=== PATIENT | female | born 1965 | race Caucasian/White ===

== ENCOUNTER 2019-10-11 10:51 | Emergency (ER) | payer OTHER, SELFPAY ==
[2019-10-11 10:52] VITALS: BP 126/99; PULSE 66; RESP 19; TEMP 36.6; O2SAT 98; BMI 26.7
--- NOTE | 2019-10-11 11:18 | EKG12_ITS ---
Test Reason : DYSRHYTHMIA Blood Pressure : / mmHG Vent. Rate : 062 BPM Atrial Rate : 062 BPM P-R Int : 148 ms QRS Dur : 082 ms QT Int : 406 ms P-R-T Axes : 062 065 048 degrees QTc Int : 412 ms Normal sinus rhythm Normal ECG Confirmed by NILSA ZELAYA, DINORAH ([id number]), food editor LIZETH PHOENIX ([id number]) on 10/13/2019 9:30:37 AM Referred By: Confirmed By:DINORAH ASH MD
--- NOTE | 2019-10-11 11:18 | RAD_ITS ---
STUDY: X-RAY CHEST REASON FOR EXAM: Female, 53 years old. CHEST PAIN TECHNIQUE: Single AP portable view of the chest. COMPARISON: None. FINDINGS: The lungs are clear and expanded. There is no demonstrated pleural abnormality. Normal size heart. Normal mediastinum and radha. Normal visualized pulmonary arteries. Normal visualized aortic arch and descending thoracic aorta. Normal visualized thoracic spine. Normal visualized ribs, clavicles, and shoulders. There is no demonstrated abnormality of the visualized soft tissue structures of the upper abdomen. RAD/Chest 1 View (Portable) IMPRESSION: No evidence of acute cardiopulmonary process. Electronically Signed: Mukul King DO at 11:51 EST , Service support ,
[2019-10-11 11:49] LABS: Absolute Neutrophil Count 5.6 X10^3/uL (2.0-7.7); Basophil# 0.05 X10^3/uL; Basophil% 0.6 % (0-1); Eosinophil# 0.21 X10^3/uL; Eosinophils% 2.5 % (0-5); Hematocrit 44.6 % (37-47); Hemoglobin 14.5 g/dL (12.0-15.0); Lymphocyte % 21.8 % (19-41); Mean Corp Hgb Conc 32.5 g/dL (32-36); Mean Corpuscular Hgb 29.6 pg (27.0-32.0); Monocyte# 0.52 X10^3/uL; Monocyte% 6.3 % (0-10); NRBC Flagged by Analyzer 0 % (0-5); Neutrophil # 5.58 X10^3/uL (2.7-7.7); Neutrophil % 67.6 % (47-70); Platelet Count 308 K/mm3 (150-450); RBC Distribution Width CV 12.9 % (11.6-14.6); RBC Distribution Width SD 43.2 fl (35.1-43.9); White Blood Count 8.3 K/mm3 (4.4-11.0)
[2019-10-11 12:08] LABS: Anion Gap 4 (5-15); BUN 11 mg/dL (7-18); Calcium,Total 9.3 mg/dL (8.5-10.1); Chloride 107 mmol/L (98-107); Creatinine, Serum 0.91 mg/dL (0.55-1.02); EST Glomerular Filtration Rate 68 mL/min (>60); Est Glom Filt Rate - Afr Amer 82 mL/min (>60); Glucose 194 mg/dL (74-106); Magnesium 1.9 mg/dL (1.6-2.6); Potassium 4.2 mmol/L (3.5-5.1); Sodium Level 139 mmol/L (136-145); Thyroid Stim Hormone (TSH) 1.13 uIU/mL (0.358-3.74)
[2019-10-11 12:16] VITALS: BP 119/88; PULSE 73; RESP 18; O2SAT 99
[2019-10-11 12:29] VITALS: BP 126/92; PULSE 68; RESP 14; O2SAT 96
--- NOTE | 2019-10-11 12:50 | ED.VIS.GEN ---
History of Present Illness Chief Complaint: Palpitations Informant: Patient, Family, [employer] Onset: Today Narrative: Patient states that she got up today when outside and began to sweat to feel jaw and chest tightness. She has had these symptoms before and they have been relieved with drinking ice water. When EMS arrived she was noted to be in an SVT rhythm with a rate around 180. Adenosine was given with conversion to a sinus rhythm and her symptoms abated. She notes that the symptoms are not monthly. She reports going to an outside emergency department in the past but states I had the wrong health insurance so I was discharged. She denies any prior stress test or heart catheterization. She is a diabetic. No history of hypertension or high cholesterol. She is a smoker. Past Medical History - Allergies and Home Meds Allergies/Adverse Reactions: Allergies No Known Allergies Allergy (Verified 10/11/19 10:55) Primary Care Physician: Glenis Burrell NP-C [Primary Care Provider] - Smoking Status: Current every day smoker Review of Systems General: Denies: Chills, Fever, Sweats Eyes: Denies: Visual changes - bilaterally, Diplopia ENT: Denies: Rhinorrhea, Sore throat Cardiovascular: Reports: Chest pain, Heart racing. Denies: Palpitations Respiratory: Reports: Dyspnea. Denies: Cough, Dyspnea on exertion Gastrointestinal: Denies: Abdominal pain, Nausea, Vomiting, Diarrhea, Melena, Hematochezia Genitourinary: Denies: Dysuria, Hematuria, Frequency Musculoskeletal: Denies: Back pain, Extremity Pain Skin: Denies: Rash, Wounds Neurological: Denies: Headache, Weakness, Numbness Physical Exam Vital Signs/Narrative: Vital Signs Temp Pulse Resp BP Pulse Ox 10/11/19 12:29 68 14 126/92 H 96 10/11/19 12:16 73 18 119/88 H 99 10/11/19 10:52 97.9 F 66 19 H 126/99 H 98 Inital Vital Signs reviewed: Yes General: Well nourished, Well developed, No Acute Distress Head: Normocephalic, Atraumatic Eyes: Perrl, EOMI ENT: Moist mucous membranes, No rhinorrhea Neck: Supple, Nontender Cardiovascular: Regular rate, Regular rhythm, No murmurs Respiratory: No distress, CTA bilaterally, Chest nontender Abdomen: Soft, Nontender, Nondistended, Normal bowel sounds Back: Nontender, Normal Inspection Extremities: Nontender, No edema Skin: Normal color, No rash Neurological: Alert, Oriented x3, Cranial nerves II-XII grossly intact, Normal Strength, Normal Sensation Psychological: Normal affect, Normal Mood Diagnostic/Tx/Re-eval - EKG Initial EKG Interpretation: Sinus Rhythm - Initial EKG is a sinus rhythm without ectopy - Medical Decision Making The patient's resting heart rate is mid 60s. She has had no recurrence of her SVT. Basic labs including CBC BMP, troponin, magnesium and TSH are normal. Chest x-ray shows a normal mediastinal silhouette. I spoke with Dr. Carrero who is on-call for cardiology. He recommends starting the patient on Cardizem CD 120 and they will follow-up in the office. ED Disposition - Plan for ED Patient: Disposition: Home or Assisted Living Instructions: Pat (P.A.T.) Prescriptions: Diltiazem CD [Cardizem CD] 120 mg PO DAILY #30 cap Prescription Printed Referrals: Cipriano Carrero MD [STAFF PHYSICIAN] - As soon as possible
[2019-10-11 13:00] VITALS: BP 116/78; PULSE 62; RESP 18; O2SAT 99
== END 2019-10-11 13:02 | disposition home or self-care (01) ==
PROVIDERS: Emergency Provider Emergency Medicine; Family Provider Nurse Practitioner Adult Health; PCP Nurse Practitioner Adult Health
DX: I47.1 Supraventricular tachycardia (principal); E11.9 Type 2 diabetes mellitus without complications; Z79.4 Long term (current) use of insulin; Z79.84 Long term (current) use of oral hypoglycemic drugs; F17.200 Nicotine dependence, unspecified, uncomplicated
CPT/HCPCS: 71045; 80048; 83735; 84443; 84484; 85025; 93005; 99285; A4216; J0153

== ENCOUNTER → 2019-11-10 08:59 | Outpatient (CLI) | payer OTHER, SELFPAY ==
[2019-10-27 13:54] VITALS: BMI 27.0
--- NOTE | 2019-11-10 09:00 | ECHOD_ITS ---
Reason For Study: ARRHYTHMIA Procedure This was a 2D Doppler, Color Flow transthoracic echocardiogram. Exam performed in department. Left Ventricle Normal size and thickness. The estimated ejection fraction is 65 %. Normal diastology for age. No regional wall motion abnormalities noted. Right Ventricle Normal size and thickness. Normal systolic function. Atria Normal left atrium. Normal right atrium. Normal atrial septum. Mitral Valve The mitral valve is structurally normal. No prolapse or stenosis seen. Trivial mitral valve insufficiency. Tricuspid Valve Normal tricuspid valve. Unable to estimate RV systolic pressure due to insufficient tricuspid regurgitant envelope. Aortic Valve Normal aortic valve. Trisinus/trileaflet aortic valve. Pulmonic Valve Normal pulmonic valve. Great Vessels Normal aortic root. Normal arch. Normal inferior vena cava. Inferior vena cava collapse with sniff. Pericardium/Pleural No pericardial effusion. MMode/2D Measurements & Calculations LVIDd: 4.0 cm IVSd: 0.89 cm Ao root diam: 3.3 cm LVIDs: 2.9 cm LVPWd: 0.82 cm RVDd: 3.0 cm FS: 28.8 % LAV(MOD-bp): 30.0 ml LVAd ap4: 31.9 cm2 SV(MOD-sp4): 71.1 ml LAV(MOD-bp) Indexed: 15.1 ml/m2 EDV(MOD-sp4): 95.1 ml LAV(MOD-sp2): 33.3 ml EDV(sp4-el): 99.2 ml LAV(MOD-sp4): 25.6 ml LVAs ap4: 14.4 cm2 ESV(MOD-sp4): 23.9 ml ESV(sp4-el): 24.9 ml EF(MOD-sp4): 74.8 % EF(sp4-el): 74.9 % SV(sp4-el): 74.4 ml LA A4 area: 12.3 cm2 LA dimension(2D): 3.3 cm RA A4 area: 10.4 cm2 Time Measurements MV dec time: 0.18 sec Doppler Measurements & Calculations MV E max gurjit: 80.3 cm/sec Lat Peak E' Gurjit: 12.7 cm/sec Med Peak E' Gurjit: 9.7 cm/sec MV A max gurjit: 52.5 cm/sec E/E' lat: 6.3 E/E' med: 8.3 MV E/A: 1.5 Ao V2 max: 126.0 cm/sec LV V1 max: 118.8 cm/sec PA V2 max: 96.3 cm/sec Ao max P.4 mmHg LV V1 max P.6 mmHg Interpretation Summary The estimated ejection fraction is 65 %. Normal diastology for age. Trivial mitral valve insufficiency. Unable to estimate RV systolic pressure due to insufficient tricuspid regurgitant envelope. There is no comparison study available. Ordering Physician: Cipriano Carrero Referring Physician: PAT MALLORY Performed By: Jacinta Oakley, TRU, RVT
== END ==
PROVIDERS: PCP Nurse Practitioner Adult Health; Referring Provider Internal Medicine Cardiovascular Disease; Visit Provider Internal Medicine Cardiovascular Disease
DX: I47.1 Supraventricular tachycardia (principal); I10 Essential (primary) hypertension; E11.9 Type 2 diabetes mellitus without complications; E78.5 Hyperlipidemia, unspecified; D75.1 Secondary polycythemia; R00.2 Palpitations; Z72.0 Tobacco use
CPT/HCPCS: 93306

== ENCOUNTER → 2019-11-18 09:33 | Outpatient (CLI) | payer OTHER, SELFPAY ==
[2019-10-27 13:54] VITALS: BMI 27.0
--- NOTE | 2019-11-18 09:34 | STE_ITS ---
Reason For Study: Arrhythmia Stress Results Protocol: Vinay Protocol Maximum Predicted HR: 165 bpm Target HR: 140 bpm % Maximum Predicted HR: 82 % DurationHeart Rate Stage (mm:ss) (bpm) BP Comment Baseline 66 108/60No Chest Pain Vinay Protocol Stage I 3:00 99 134/62No Chest Pain Vinay Protocol Stage II 3:00 110 144/70No Chest Pain Vinay Protocol Stage III 3:00 125 160/74No Chest Pain; Mild Dyspnea Vinay Protocol Stage IV 1:00 136 / No Chest Pain; Moderate Dyspnea Recovery 84 122/70No Chest Pain Stress Duration: 10:00 mm:ss Maximum Stress HR: 136 bpm METS: 13 Baseline Echocardiogram Findings The estimated ejection fraction is 65 %. Stress Echo Wall motion Data Resting WM Intermediate WM Stress WM Resting Wall Motion Wall Motion Stress No regional wall motion No regional wall motion abnormalities noted. abnormalities noted. EKG Data The baseline ECG displays normal sinus rhythm. The patient exercised according to the regular Vinay protocol for a total duration of 10:00. The maximum heart rate attained was 137 beats per minute. This was 83% of maximum predicted heart rate. The patient exercised into stage 4 of the Vinay protocol. At peak exercise, upsloping ST changes only were noted, which did not meet the criteria for ischemia. No clinical angina was noted. No arrhythmias noted. Interpretation Summary The estimated ejection fraction is 65 %. Normal, adequate, treadmill echocardiogram. Negative for ischemia by EKG and echocardiographic criteria. No anginal symptoms noted. No arrhythmias noted. Appropriate blood pressure response to exercise. Average exercise capacity for age. Test terminated due to fatigue. Final LVEF of 75%. No complications. Ordering Physician: Cipriano Carrero Referring Physician: Glenis Burrell Performed By: Jacy Vigil, TRU, RVT
== END ==
LOC: CVS 09:34
PROVIDERS: PCP Nurse Practitioner Adult Health; Referring Provider Internal Medicine Cardiovascular Disease; Visit Provider Internal Medicine Cardiovascular Disease
DX: I47.1 Supraventricular tachycardia (principal); I10 Essential (primary) hypertension; E78.5 Hyperlipidemia, unspecified; E11.9 Type 2 diabetes mellitus without complications; R00.2 Palpitations; Z72.0 Tobacco use
CPT/HCPCS: 93017; 93350

== ENCOUNTER 2025-01-09 02:13 | Emergency (ER) | payer OTHER, SELFPAY ==
[2025-01-09 02:15] VITALS: BP 149/86; PULSE 86; RESP 16; TEMP 37; O2SAT 95; BMI 28.1
--- NOTE | 2025-01-09 02:25 | CT_ITS ---
EXAM: ABDOMEN/PELVIS W IV CONT ONLY 01/09/2025 CLINICAL HISTORY: Left lower quadrant pain history of diverticulitis COMPARISON: None available TECHNIQUE: CT of the abdomen and pelvis with contrast with coronal and sagittal reformatted images. 98 cc Isovue 370 intravenous contrast FINDINGS: Lung bases appear within limits. The liver, right adrenal gland, kidneys, pancreas and spleen appear within limits. Indeterminate 2 cm left adrenal nodule coronal 83 and axial 20. Small calcified gallstone noninflamed, nondistended appearing gallbladder. Aortoiliac atherosclerotic changes without abdominal aortic aneurysm. Incidental note of a circumaortic left renal vein. No adenopathy identified. Mobile cecum in the right upper quadrant without evidence of volvulus, anatomic variant. Normal caliber appendix without secondary signs. Diverticulosis with acute uncomplicated appearing sigmoid diverticulitis. Trace pelvic free fluid. No abscess. No bowel dilation or free air. The bladder appears within limits. Ovaries and uterus appear within limits. Spondylosis. Fat containing left lower lateral abdominal hernia coronal [address]/Abdomen/Pelvis W IV Cont ONLY IMPRESSION: Acute uncomplicated appearing sigmoid diverticulitis. Trace pelvic free fluid. No abscess or free air. Cholelithiasis. Indeterminate 2 cm left adrenal nodule coronal 83 and axial 20. May follow-up with nonemergent adrenal protocol CT or MRI. Fat containing left lower lateral abdominal hernia coronal 53 and axial 95. Reading Location: [id number]
[2025-01-09] MEDS: Dicyclomine 10 MG Capsule 20 MG PO (02:41)
[2025-01-09] MEDS: Ondansetron 4 MG/2 ML Vial IV (02:41)
[2025-01-09] MEDS: 0.9% Normal Saline (1000mL) 1,000 ML 999 ML IV (02:41)
--- NOTE | 2025-01-09 02:46 | EDS_ITS ---
HPI History of Present Illness Chief Complaint: Abd Pain Narrative Narrative: Patient is a 59-year-old female with past medical history of hypertension, diabetes, hyperlipidemia, supraventricular Tachycardia, diverticulitis who presented to the emergency department with a chief complaint of left-sided abdominal pain. States that earlier today she was at work and noted that she had some discomfort in her abdomen she states that she just thought this was another aches and pain. States that by this evening she was having significant discomfort prompting her to come here for further evaluation management. [facility] Medical History SVT (supraventricular tachycardia) (10/10/20) Solitary pulmonary nodule on lung CT Polycythemia secondary to smoking Essential hypertension Palpitations Tobacco use Hyperlipidemia Diabetes mellitus, type II Home Medications ?Medication ?Instructions ?Recorded ?Last Taken ?Type fenofibrate 54 mg tablet 54 mg PO DAILY #90 tabs 10/14 01/31 Unknown Rx meloxicam 7.5 mg tablet 7.5 mg PO DAILY PRN pain Unknown History fluoxetine 40 mg capsule 40 mg PO DAILY 06/09/20 Unkn own History metformin 500 mg tablet,extended 1,000 mg PO BID 06/07 Unknown History release 24 hr insulin glargine 100 unit/mL 44 unit subcut QHS Unknown History subcutaneous solution magnesium 200 mg tablet 200 mg PO DAILY 06/06/22 Unk nown History diltiazem HCl 120 mg 120 mg PO DAILY #90 caps Unknown Rx capsule,extended release 24 hr ciprofloxacin HCl 500 mg tablet 500 mg PO Q12H 5 days #10 tabs 01/09/25 Unknown Rx metronidazole 500 mg tablet 500 mg PO Q12H 5 days #10 tabs 01/09/25 Unknown Rx ondansetron 4 mg disintegrating 4 mg PO Q6H PRN nausea and 01/09/25 Unknown Rx tablet vomiting #20 tabs Allergy/AdvReac Type Severity Reaction Status Date / Time atorvastatin AdvReac Severe myalgias Verified 01/09/25 02:14 amoxicillin (From Augmentin) AdvReac Intermediate GI upset Verified 01/09/25 02:14 and diarrhea clavulanic acid (From AdvReac Intermediate GI upset Verified 01/09/25 02:14 Augmentin) and diarrhea Family History Father CAD (coronary artery disease) Diabetes Hypertension Mother Dementia Rheumatoid arthritis Cancer Uterine vs. ovarian Grandmother Bonny Gehrigs disease Aunt Breast cancer Surgical History History of bilateral carpal tunnel release H/O bilateral cataract extraction (~11/2018) Social History Smoking Status: Current every day smoker tobacco type: cigarettes alcohol intake: current alcohol intake frequency: holidays/special occasions only substance use type: does not use caffeine: No ROS ROS ED ROS Narrative Constitutional: Denies fever, chills, headaches Eyes: Denies change in vision double vision blurry vision Cardiovascular: Denies chest pain Respiratory: Shortness of breath Abdomen: Complains of left-sided abdominal pain as noted above as well as nausea denies vomiting or diarrhea : Denies urinary symptoms Neurological: Denies numbness, weakness, tingling Musculoskeletal: Denies back pain Skin: Denies rashes or lesions EXAM Physical Exam Narrative Exam Narrative: General: Patient lying in bed rest comfortably did not appear to be in acute distress Head: Atraumatic, normocephalic Eyes: PERRL bilaterally, EOMI bilaterally, no conjunctival injection noted Neck: Soft, supple and trachea midline Cardiovascular: Regular rate and rhythm no murmurs gallops rubs noted Respiratory: Clear to auscultation bilaterally Abdomen: Soft, nondistended, tenderness to palpation left lower quadrant no rebound or guarding on exam Extremities: +5/5 strength in the bilateral upper and lower extremities Neurological: Patient follow commands and that she was at [facility] Skin: Warm, dry, intact Const Vital Signs: 01/09/25 02:15 Temperature 98.6 F Temperature Source Oral Pulse Rate 86 Respiratory Rate 16 Blood Pressure 149/86 H Blood Pressure Mean 107 Pulse Ox 95 Oxygen Delivery Method Room Air MDM MDM MDM Narrative Medical decision making narrative: Patient is a 59-year-old female who presented to the emerged part with chief complaint of abdominal pain and nausea. On the differential diagnose includes but not limited to diverticulitis, small bowel obstruction, appendicitis. Once workup is obtained and reviewed she will be reevaluated. Patient be given IV fluids, Zofran and Bentyl. Patient CBC was significant for leukocytosis of 16,000, hemoglobin 14.3, plate count of 388. Patient sodium normal 134, potassium 4.1, creatinine normal 1.02. Patient AST and ALT were 18 and 15 respectively. Patient lipase normal 31. Patient's CT abdomen pelvis with IV contrast reviewed showed acute uncomplicated sigmoid diverticulitis. Trace fluid no abscess or free air. Cholelithiasis. Fat-containing left lower lateral abdominal wall hernia. Reevaluation of patient she would like to go home at this point time. Patient will be given first dose of Cipro Flagyl here in the emergency department prescription sent to the pharmacy. She also be given prescriptions for Zofran for as needed nausea. She is encouraged return with worsening symptoms or other concerns otherwise she is to follow-up with her primary care physician outpatient setting. All question concerns answered she was discharged home in stable condition. Lab Data Labs: Laboratory Results - last 24 hr 01/09/25 02:18 WBC 16.6 H RBC 4.66 Hgb 14.3 Hct 41.9 MCV 89.9 MCH 30.7 MCHC 34.1 RDW Std Deviation 43.7 RDW Coeff of Brodie 13.2 Plt Count 388 MPV 9.8 Immature Gran % (Auto) 0.500 Neut % (Auto) 75.6 H Lymph % (Auto) 13.7 L [place] % (Auto) 9.0 Eos % (Auto) 0.8 Baso % (Auto) 0.4 Absolute Neuts (auto) 12.6 H Absolute Lymphs (auto) 2.28 Nucleated RBC % 0 Sodium 134 Potassium 4.1 Chloride 101 Carbon Dioxide 18.8 L Anion Gap 14 BUN 12 Creatinine 1.02 Estim Creat Clear Calc 67.92 Est GFR (MDRD) Non-Af 63 BUN/Creatinine Ratio 12.2 Glucose 175 H Calcium 9.6 Total Bilirubin 0.51 AST 18 ALT 15 Alkaline Phosphatase 82 Total Protein 6.8 Albumin 4.3 Globulin 2.5 Albumin/Globulin Ratio 1.7 Lipase 31 Radiography Diagnostic Testing: Clinical Impression(s) from Imaging Studies Abdomen/Pelvis CT 01/09/25 02:25 IMPRESSION: Acute uncomplicated appearing sigmoid diverticulitis. Trace pelvic free fluid. No abscess or free air. Cholelithiasis. Indeterminate 2 cm left adrenal nodule coronal 83 and axial 20. May follow-up with nonemergent adrenal protocol CT or MRI. Fat containing left lower lateral abdominal hernia coronal 53 and axial 95. Reading Location: [facility] Discharge Plan Triage Chief Complaint: Abd Pain ED Provider: Bon Stern Dx/Rx/DC Orders Clinical Impression: Abdominal pain, Diverticulitis Prescriptions: New ciprofloxacin HCl 500 mg tablet 500 mg PO Q12H 5 Days Qty: 10 0RF metronidazole 500 mg tablet 500 mg PO Q12H 5 Days Qty: 10 0RF ondansetron 4 mg tablet,disintegrating 4 mg PO Q6H PRN (Reason: nausea and vomiting) Qty: 20 0RF No Action meloxicam 7.5 mg tablet 7.5 mg PO DAILY PRN (Reason: pain) fenofibrate 54 mg tablet 54 mg PO DAILY Qty: 90 3RF fluoxetine 40 mg capsule 40 mg PO DAILY magnesium 200 mg tablet 200 mg PO DAILY metformin 500 mg tablet extended release 24 hr 1,000 mg PO BID insulin glargine 100 unit/mL solution 44 unit SC QHS diltiazem HCl 120 mg capsule,extended release 24hr 120 mg PO DAILY Qty: 90 3RF Primary Care Provider: Glenis Burrell NP Referrals: Glenis Burrell NP, [employer]-[facility] [Primary Care Provider] - Activity Restrictions/Additional Instructions: Your CT scan here showed you have diverticulitis. Take prescriptions as prescribed and use Zofran as needed for nausea. Return with any other concerns or worsening symptoms otherwise follow-up with your doctor in outpatient setting. Print Language: [place] Disposition Disposition: Home, Self Care
[2025-01-09 02:52] LABS: Lipase 31 U/L (13-75)
[2025-01-09 02:58] LABS: Absolute Lymphocyte Count 2.28 X10^3/uL (0.83-4.51); Absolute Neutrophil Count 12.6 X10^3/uL (2.0-7.7); Basophil# 0.06 X10^3/uL; Basophil% 0.4 % (0-1); Eosinophil# 0.13 X10^3/uL; Eosinophils% 0.8 % (0-5); Hematocrit 41.9 % (37-47); Hemoglobin 14.3 g/dL (12.0-15.0); Lymphocyte # 2.28 X10^3/ul (0.83-4.51); Lymphocyte % 13.7 % (19-41); Mean Corp Hgb Conc 34.1 g/dL (32-36); Mean Corpuscular Hgb 30.7 pg (27.0-32.0); Mean Corpuscular Volume 89.9 fL (81-99); Mean Platelet Vol. 9.8 fl (6.2-12.0); NRBC Flagged by Analyzer 0 % (0-5); Neutrophil # 12.57 X10^3/uL (2.7-7.7); Neutrophil % 75.6 % (47-70); Platelet Count 388 K/mm3 (150-450); RBC Distribution Width CV 13.2 % (11.6-14.6); RBC Distribution Width SD 43.7 fl (35.1-43.9); Red Blood Count 4.66 M/mm3 (4.2-5.4); White Blood Count 16.6 K/mm3 (4.4-11.0)
[2025-01-09 03:09] LABS: ALB/GLOB Ratio 1.7 RATIO (0.9-2.4); AST(SGOT) 18 U/L (<=31); Alanine Aminotransfer ALT/SGPT 15 U/L (<=34); Albumin, Serum 4.3 g/dL (3.4-4.8); Anion Gap 14 (5-15); BUN 12 mg/dL (4-19); BUN/Creat Ratio 12.2 RATIO (10-20); Calcium,Total 9.6 mg/dL (7.6-11.0); Carbon Dioxide 18.8 mmol/L (21.0-32.0); Chloride 101 mmol/L (98-108); Creatinine, Serum 1.02 mg/dL (0.70-1.20); EST Glomerular Filtration Rate 63 (>60); Estimated Creatinine Clearance 67.92 ml/min (50-250); Globulin 2.5 g/dL (2.2-4.2); Glucose 175 mg/dL (70-99); Potassium 4.1 mmol/L (3.3-5.1); Protein, Total 6.8 g/dL (5.9-8.4); Sodium Level 134 mmol/L (133-145); Total Bilirubin 0.51 mg/dL (0.00-1.30)
[2025-01-09 03:38] LABS: Alkaline Phosphatase 82 U/L (35-104)
[2025-01-09] MEDS: Ciprofloxacin 500 MG Tablet PO (04:06)
[2025-01-09] MEDS: metroNIDAZOLE 500 MG Tablet PO (04:06)
[2025-01-09 04:08] VITALS: BP 143/79; PULSE 65; RESP 16; TEMP 36.7; O2SAT 97
== END 2025-01-09 04:08 | disposition home or self-care (01) ==
PROVIDERS: Emergency Provider Emergency Medicine; PCP Nurse Practitioner Adult Health; Visit Provider Emergency Medicine
DX: K57.32 Diverticulitis of large intestine without perforation or abscess without bleeding (principal); E11.9 Type 2 diabetes mellitus without complications; Z79.4 Long term (current) use of insulin; I10 Essential (primary) hypertension; E78.5 Hyperlipidemia, unspecified; F17.210 Nicotine dependence, cigarettes, uncomplicated; Z79.84 Long term (current) use of oral hypoglycemic drugs; Z79.899 Other long term (current) drug therapy
CPT/HCPCS: 74177; 80053; 83690; 85025; 96361; 96374; 96376; 99285; Q9967; A4216; J2405